=== PATIENT | female | born 1955 | race Caucasian/White ===

== ENCOUNTER 2017-07-09 14:45 | Inpatient (IN) | payer OTHER ==
[~2017-07-09] VITALS: Ht 167.6 cm; Wt 66.2 kg
[2017-07-09 14:53] VITALS: BP 165/110
--- NOTE | 2017-07-09 14:54 | NUR ---
PT AMBULATED TO BED 11
--- NOTE | 2017-07-09 15:00 | NUR ---
PATIENT PRESENTS TO ED WITH COMPLAINTS OF HIGH BLOOD PRESSURE. PT STATES BLOOD PRESSURE HAS BEEN HIGH FOR A FEW DAYS AND SHE NO LONGER HAS ANY XANAX TO HELP WITH HER ANXIETY. PATIENT DENIES ANY WEAKNESS, PUPILS PERRL, STRENGTH SYMMETRY IN BILATERAL HANDS. DENIES N/V/D; SKIN IS PINK/WARM/DRY; AAOX4 WITH EVEN AND STEADY GAIT; LUNGS CLEAR BL; HR EVEN AND REGULAR; PT DENIES ANY FEVER, CP, SOB, OR COUGH AT THIS TIME; PATIENT STATES PAIN OF 7/10 GENERALIZED WITH SLIGHT HEADACHE AT THIS TIME; VSS; PATIENT POSITIONED FOR COMFORT; HOB ELEVATED; BEDRAILS UP X1; BED DOWN. ER MD MADE AWARE OF PT STATUS.
[2017-07-09 15:29] LABS: BASOPHILS # (AUTO) 0.1 K/uL (0.00-0.22); BASOPHILS % (AUTO) 0.9 % (0.0-2.0); EOSINOPHILS # (AUTO) 0.1 K/uL (0-0.4); EOSINOPHILS % (AUTO) 1.7 % (0.0-4.0); HEMATOCRIT 37.5 % (36-48); HEMOGLOBIN 12.3 g/dL (12.0-16.0); LYMPHOCYTES # (AUTO) 2.5 K/uL (2.5-16.5); LYMPHOCYTES % (AUTO) 34.3 % (20.5-51.1); MEAN CORPUSCULAR HEMOGLOBIN 29 pg (27-31); MEAN CORPUSCULAR HGB CONC 33 g/dL (33-37); MEAN CORPUSCULAR VOLUME 88.9 fL (80-94); MONOCYTES # (AUTO) 0.5 K/uL (0.8-1.0); MONOCYTES % (AUTO) 6.9 % (1.7-9.3); NEUTROPHILS # (AUTO) 4.1 K/uL (1.8-7.7); NEUTROPHILS % (AUTO) 56.2 % (42.2-75.2); PLATELET COUNT (AUTO) 309 K/uL (140-450); RED BLOOD CELL COUNT(AUTO) 4.21 MIL/uL (4.20-5.40); RED CELL DISTRIBUTION WIDTH 13.9 % (11.6-13.7); WHITE BLOOD COUNT (AUTO) 7.2 K/uL (4.8-10.8)
[2017-07-09 15:43] LABS: PROTHROMBIN TIME 10.9 secs (10.8-13.4)
[2017-07-09 15:45] LABS: ALBUMIN 3.5 g/dL (3.4-5.0); ANION GAP 14.5 (8-16); CARBON DIOXIDE 25.8 mmol/L (21-32); CREATININE 0.8 mg/dL (0.6-1.3); POTASSIUM 3.3 mmol/L (3.5-5.1); TOTAL BILIRUBIN 0.6 mg/dL (0.0-1.0)
[2017-07-09] MEDS ORDERED: LORazepam 1 MG TAB PO ONE ×2 (16:25→17:00)
[2017-07-09 16:40] LABS: APPEARANCE,URINE CLEAR (CLEAR); BILIRUBIN,URINE NEGATIVE (NEGATIVE); BLOOD, URINE TRACE-L (NEGATIVE); LEUKOCYTE ESTERASE ,URINE NEGATIVE (NEGATIVE); NITRITE, URINE NEGATIVE (NEGATIVE); UGLUCOSE NEGATIVE (NEGATIVE)
[2017-07-09 16:43] LABS: COLOR,URINE STRAW (YELLOW)
[2017-07-09 16:55] LABS: RBC,URINE 0-5 (RARE) /HPF (0-5); WBC,URINE NONE SEEN /HPF (0-5)
[2017-07-09] MEDS ORDERED: POTASSIUM CHLORIDE 10 MEQ TABER PO ONE (17:05)
[2017-07-09] MEDS ORDERED: hydrALAZINE 20 MG/ML VIAL IVP ONE (17:15)
[2017-07-09] MEDS ORDERED: diphenhydrAMINE 50 MG/ML VIAL IVP ONE (18:00)
--- NOTE | 2017-07-09 19:09 | NUR ---
REPORT GIVEN TO HENNESSY (CATHERINE)
--- NOTE | 2017-07-09 19:10 | NUR ---
RECEIVED REPORT FROM KALYAN PARK. PT RESTING WITH FAMILY AT BEDSIDE. PT AOX3 PERSON PLACE AND EVENT. NO SOB, NO DISTRESS NOTED. WILL CONTINUE TO MONITOR.
[2017-07-09] MEDS ORDERED: ONDANSETRON 4 MG/2 ML VIAL IM/IVP PRN (19:40)
[2017-07-09] MEDS ORDERED: ACETAMINOPHEN 325 MG TAB PO PRN (19:40)
[2017-07-09] MEDS ORDERED: DOCUSATE SODIUM 100 MG GELCAP PO PRN (19:40)
--- NOTE | 2017-07-09 19:48 | NUR ---
CALLED TELE CHARGE-SHE WILL CALLBACK WITH A ROOM #
--- NOTE | 2017-07-09 20:00 | NUR ---
Patient will be admitted to care of DR BYRD . Admited to TELE. Will go to room 119B. Belongings list completed. Report to MARYSOL PARK .
--- NOTE | 2017-07-09 20:09 | NUR ---
MACARIO ZUÑIGA STS "I WILL DO THE MED RECONCILE " VIVIAN HENNESSY NOTIFTED.
[2017-07-09] MEDS ORDERED: FAMO-90 PO (20:10)
[2017-07-09] MEDS ORDERED: PAX20 PO (20:10)
[2017-07-09] MEDS ORDERED: GABA300C PO (20:10)
[2017-07-09] MEDS ORDERED: ENALAPRIL 10 MG TAB PO ONE (20:10)
[2017-07-09] MEDS ORDERED: ALPR2TAB1 PO (20:10)
[2017-07-09] MEDS ORDERED: METH750T5 PO (20:10)
[2017-07-09] MEDS ORDERED: ENAL20TA6 PO (20:10)
[2017-07-09] MEDS ORDERED: TRAZ-286 PO (20:10)
[2017-07-09] MEDS ORDERED: LEVO0.0211 PO (20:10)
[2017-07-09] MEDS ORDERED: ATOR20TA40 PO (20:10)
[2017-07-09] MEDS ORDERED: ATEN50TA8 PO (20:10)
[2017-07-09] MEDS ORDERED: ATENOLOL 50 MG TAB PO ONE (20:10)
[2017-07-09 20:20] VITALS: BP 214/92
--- NOTE | 2017-07-09 20:20 | NUR ---
RECEIVED PT FROM ER NURSE-DAVE RN VIA BERTA. PT AMBULATORY WITH ASSISTANCE, HAS WALKER. AOX3-CONFUSED, ON ROOM AIR WITH IV LEFT WRIST #22G. BOYFRIEND AT BEDSIDE. ALLERGIC TO PENICILLINS. ORIENTED PT TO ROOM. DISCUSSED PLAN OF CARE. PT CONFUSED, UNABLE TO VERBALIZE UNDERSTANDING. WHITE BOARD UPDATED. BED IN LOWEST POSITION, BED BREAKS ON AND BED ALARM ON. BED SIDE TABLE AND CALL LIGHT WITHIN REACH. WILL CONTINUE TO MONITOR.
[2017-07-09 20:22] LABS: BARBITURATE, URINE NEG. ng/ml (NEG <=200); BENZODIAZEPINE, URINE POS. ng/mL (NEG <=200); CANNABINOID, URINE NEG. ng/mL (NEG <=50); COCAINE, URINE NEG. ng/mL (NEG <=300); OPIATE, URINE POS. ng/mL (NEG <=2000); PHENCYCLIDINE SCREEN,URINE NEG. ng/mL (NEG <=25)
[2017-07-09 20:29] LABS: CHOL/HDL RATIO 3.7 (1-4.5); FREE T4 (FREE THYROXINE) 0.88 ng/dL (0.76-1.46); MAGNESIUM 1.5 mg/dL (1.8-2.4); PHOSPHORUS 3.7 mg/dL (2.5-4.9)
[2017-07-09] MEDS ORDERED: MAG SULF 2000 MG/WATER PREMIX 50 ML IV ONE ×2 (20:55→22:21)
[2017-07-09] MEDS: NACL 0.9% 1,000 ML IV SCH (22:26)
[2017-07-09] MEDS: GABAPENTIN 300 MG CAP PO SCH (22:27)
[2017-07-09] MEDS: ATORVASTATIN 20 MG TAB PO SCH (22:27)
[2017-07-09] MEDS: traZODone 50 MG TAB PO SCH (22:27)
[2017-07-09] MEDS ORDERED: ENALAPRIL 10 MG TAB ONE (22:40)
[2017-07-09] MEDS ORDERED: ATENOLOL 25 MG TAB ONE (22:41)
--- NOTE | 2017-07-09 23:00 | NUR ---
SCHEDULED MEDICATION GIVEN. PT ALSO REQUESTED A SANDWICH AND SNACKS. WILL CONTINUE TO MONITOR.
[2017-07-09] MEDS: ALPRAZolam 0.5 MG TAB PO SCH (23:12)
[2017-07-10] VITALS: BP 167/81
--- NOTE | 2017-07-10 | NUR ---
VITAL SIGNS SHOW BLOOD PRESSURE IS DECREASING. NO S/S OF RESPIRATORY DISTRESS OR DISCOMFORT NOTED AT THIS TIME. PT WANTING TO SLEEP. WILL CONTINUE TO MONITOR.
--- NOTE | 2017-07-10 02:00 | NUR ---
PT CONTINUES TO SLEEP. NO S/S OF RESPIRATORY DISTRESS OR DISCOMFORT NOTED AT THIS TIME. WILL CONTINUE TO MONITOR.
[2017-07-10 04:00] VITALS: BP 128/65
--- NOTE | 2017-07-10 04:00 | NUR ---
VITAL SIGNS TAKEN AND TOLERATED WELL. BLOOD PRESSURE 128/65. NO S/S OF RESPIRATORY DISTRESS OR DISCOMFORT NOTED AT THIS TIME. WILL CONTINUE TO MONITOR.
--- NOTE | 2017-07-10 06:00 | NUR ---
PT SLEEPING IN BED. NO S/S OF RESPIRATORY DISTRESS OR DISCOMFORT AT THIS TIME. WILL CONTINUE TO MONITOR.
--- NOTE | 2017-07-10 07:15 | NUR ---
ENDORSED PT CARE TO DAY SHIFT NURSE KRISTEL FOR CONTINUITY OF CARE. PT IN STABLE CONDITION AT THIS TIME.
--- NOTE | 2017-07-10 07:20 | NUR ---
RECEIVED REPORT FROM FIELD RING ASSEMBLER NURSE MARYSOL, PT IS AWAKE AND LYING ON THE BED, WITH PADDED SIDE RAILS AND AN IV LINE AT LEFT WRIST G.22, AND AN IV PIGGYBACK OF MAGNESIUM INFUSING AT 25ML/HR. NO SIGN OF DISTRESS NOTED. CALL LIGHT WITHIN REACH, SIDE RAILS UP AND BED ALARM IN PLACED. WILL CONTINUE TO MONITOR.
[2017-07-10 07:28] LABS: BASOPHILS # (AUTO) 0.1 K/uL (0.00-0.22); BASOPHILS % (AUTO) 0.7 % (0.0-2.0); EOSINOPHILS # (AUTO) 0.1 K/uL (0-0.4); EOSINOPHILS % (AUTO) 1.9 % (0.0-4.0); HEMATOCRIT 34.6 % (36-48); HEMOGLOBIN 11.4 g/dL (12.0-16.0); LYMPHOCYTES # (AUTO) 3.2 K/uL (2.5-16.5); LYMPHOCYTES % (AUTO) 41.6 % (20.5-51.1); MEAN CORPUSCULAR HEMOGLOBIN 29 pg (27-31); MEAN CORPUSCULAR HGB CONC 33 g/dL (33-37); MEAN CORPUSCULAR VOLUME 88.4 fL (80-94); MONOCYTES # (AUTO) 0.6 K/uL (0.8-1.0); MONOCYTES % (AUTO) 7.5 % (1.7-9.3); NEUTROPHILS # (AUTO) 3.7 K/uL (1.8-7.7); NEUTROPHILS % (AUTO) 48.3 % (42.2-75.2); PLATELET COUNT (AUTO) 301 K/uL (140-450); RED BLOOD CELL COUNT(AUTO) 3.91 MIL/uL (4.20-5.40); WHITE BLOOD COUNT (AUTO) 7.6 K/uL (4.8-10.8)
--- NOTE | 2017-07-10 07:50 | NUR ---
PT IS AWAKE AND SEATED ON THE BED, EATING HER BREAKFAST. CALL LIGHT WITHIN REACH. NO SIGN OF DISTRESS NOTED. WILL MONITOR.
[2017-07-10 07:54] LABS: ANION GAP 13.1 (8-16); CARBON DIOXIDE 26.9 mmol/L (21-32); CREATININE 0.8 mg/dL (0.6-1.3)
[2017-07-10 08:00] VITALS: BP 154/58
--- NOTE | 2017-07-10 08:15 | NUR ---
PT IS AWAKE AND SEATED ON THE BED EATING HER BREAKFAST, NO SIGN OF DISTRESS NOTED, CALL LIGHT WITHIN REACH. WILL CONTINUE TO MONITOR.
--- NOTE | 2017-07-10 08:30 | NUR ---
PT IS AWAKE AND VITAL SIGNS TAKEN, BP RESULT IS 178/71. NO OTHER SIGN OF DISTRESS NOTED. CALL LIGHT WITHIN REACH AND WILL CONTINUE TO MONITOR.
--- NOTE | 2017-07-10 08:30 | NUR ---
PATIENT HAS BEEN SCREENED AND CATEGORIZED MODERATE RISK. PATIENT WILL BE SEEN WITHIN 3-5 DAYS OF ADMISSION. 07/12/17 TO 07/14/[address], [facility]
[2017-07-10] MEDS: METHOCARBAMOL 500 MG TAB PO SCH (08:47)
[2017-07-10] MEDS: ENALAPRIL 10 MG TAB PO SCH (08:47)
[2017-07-10] MEDS: GABAPENTIN 300 MG CAP PO SCH ×2 (08:48→21:59)
[2017-07-10] MEDS: PARoxetine 20 MG TAB PO SCH (08:48)
[2017-07-10] MEDS: LEVOTHYROXINE 0.025 MG TAB PO SCH (08:49)
[2017-07-10] MEDS: FAMOTIDINE 20 MG TAB PO SCH (08:49)
[2017-07-10] MEDS ORDERED: ENALAPRIL 10 MG TAB PO SCH (09:00)
[2017-07-10] MEDS ORDERED: ATENOLOL 50 MG TAB PO SCH ×2 (09:00)
[2017-07-10] MEDS: ALPRAZolam 0.5 MG TAB PO SCH (10:36)
--- NOTE | 2017-07-10 10:42 | NUR ---
ASSISTED PT TO THE BATHROOM AND BACK TO BED AND NO SIGN OF DISTRESS NOTED. WILL MONITOR.
--- NOTE | 2017-07-10 10:43 | NUR ---
PT VERBALIZED THAT SHE IS FEELING ANXIOUS AND ASKED FOR A MEDICATION TO CALM HER DOWN. MEDICATION GIVEN AND PT TOLERATED IT. PT IS ON THE BED, WATCHING TV. CALL LIGHT WITHIN REACH. WILL CONTINUE TO MONITOR.
--- NOTE | 2017-07-10 11:49 | NUR ---
PT'S SISTER JOIE CALLED AND ASKED ABOUT HOW THE PT IS DOING. INFORMED THE SISTER OF THE PT'S BP AND THAT PT IS STABLE AT THIS TIME. PT IS SEEN SLEEPING ON THE BED. NO SIGN OF DISTRESS NOTED. CALL LIGHT WITHIN REACH. WILL CONTINUE TO MONITOR.
[2017-07-10 12:00] VITALS: BP 142/73
--- NOTE | 2017-07-10 12:45 | NUR ---
PT IS SLEEPING LYING ON THE BED, NS STILL INFUSING. SIDE RAILS ARE UP AND PADDED, CALL LIGHT WITHIN REACH. NO SIGN OF DISTRESS NOTED. WILL CONTINUE TO MONITOR.
--- NOTE | 2017-07-10 13:01 | NUR ---
PT IS ASLEEP AND LYING ON THE BED, PT WAS AWAKEN WHEN HER BOYFRIEND CAME AND BROUGHT BRODY FOR HER. NO SIGN OF DISCOMFORT NOTED ON THE PT. CALL LIGHT WITHIN REACH AND SIDE RAILS ARE UP AND PADDED. PT WAS LEFT WITH THE BOYFRIEND ON THE BEDSIDE.
[2017-07-10] MEDS: HYDROcodone/APAP 7.5/325 MG 1 TAB PO PRN ×2 (13:41→22:00)
--- NOTE | 2017-07-10 13:45 | NUR ---
ASSISTED PT TO THE BATHROOM AND BACK TO THE BED, BOYFRIEND AT THE BEDSIDE. PT VERBALIZED A PAIN ON THE HEAD AND RATED PAIN 6. PT ASKED FOR A PAIN MEDICATION AND NORCO WAS GIVEN.. PT TOLERATED IT AND NO SIGN OF DISTRESS NOTED. CALL LIGHT WITHIN REACH AND WILL CONTINUE TO MONITOR.
[2017-07-10] MEDS ORDERED: ALBUTEROL SULFATE/IPRATROPIU 3 ML SOL IH PRN (14:05)
[2017-07-10] MEDS: NACL 0.9% 1,000 ML IV SCH (14:07)
--- NOTE | 2017-07-10 14:15 | NUR ---
PT IS ASLEEP ON THE BED, STARTED ON POTASSIUM AT 20MEQ, IV PIGGYBACK AT A RATE OF 50ML/HR. PT TOLERATED IT AND NO SIGN OF DISTRESS NOTED. CALL LIGHT WITHIN REACH AND SIDE RAILS ARE UP AND PADDED. WILL CONTINUE TO MONITOR.
[2017-07-10] MEDS: KCL 20 MEQ/WATER INJ PREMIX 100 ML IV SCH ×2 (14:27→19:14)
--- NOTE | 2017-07-10 15:31 | NUR ---
INFORMED DR. OBANDO THAT THE PT IS FEELING A BURNING SENSATION ON HER IV SITE, WITH THE POTASSIUM OF 20MEQ RUNNING AT 50ML/HR. DR OBANDO ADVISED TO LOWER THE RATE AT 25ML/HR. ORDER ACKNOWLEDGED.
[2017-07-10 16:00] VITALS: BP 178/81
--- NOTE | 2017-07-10 18:55 | NUR ---
PT IS AWAKE AND WAS ASSISTED TO THE BATHROOM, KCL WAS STARTED AT A RATE OF 20ML/HR, PT TOLERATED IT. NO OTHER SIGN OF DISCOMFORT NOTED.
--- NOTE | 2017-07-10 19:25 | NUR ---
ENDORSED PT TO WIRE FRAME LAMPSHADE MAKER NURSE MARYSOL, FOR CONTINUITY OF CARE. PT IS STABLE WITH BOYFRIEND ON THE BEDSIDE.
--- NOTE | 2017-07-10 19:26 | NUR ---
RECEIVED REPORT FROM DAY SHIFT NURSE-ANGELICA PARK. PT IS AWAKE AND LYING ON THE BED, WITH PADDED SIDE RAILS. AOX3, ON ROOM AIR WITH IV LINE AT LEFT WRIST G.22. BOYFRIEND STELLA AT BEDSIDE. DISCUSSED PLAN OF CARE AND PT VERBALIZED UNDERSTANDING. UPDATED WHITE BOARD. BED IN LOWEST POSITION, BED BREAKS ON, BED ALARM ON. BED SIDE TABLE AND CALL LIGHT WITHIN REACH. NO S/S OF RESPIRATORY DISTRESS OR DISCOMFORT NOTED AT THIS TIME. WILL CONTINUE TO MONITOR.
[2017-07-10 20:00] VITALS: BP 176/70
--- NOTE | 2017-07-10 20:40 | NUR ---
SPOKE WITH DR. CARVALHO ABOUT BLOOD PRESSURE 176/70. WILL ORDER ONE TIME DOSE TO LOWER BP AND THEN REASSESS 2 HOURS LATER.
[2017-07-10] MEDS: ATORVASTATIN 20 MG TAB PO SCH (21:59)
[2017-07-10] MEDS: traZODone 50 MG TAB PO SCH (22:00)
[2017-07-10] MEDS: ATENOLOL 50 MG TAB PO SCH (22:00)
--- NOTE | 2017-07-10 22:00 | NUR ---
BP 182/70, HR 84 BEFORE BLOOD PRESSURE MEDICATION WAS GIVEN. WILL CONTINUE TO MONITOR.
[2017-07-10] MEDS: ALPRAZolam 0.5 MG TAB PO PRN (23:07)
--- NOTE | 2017-07-10 23:13 | NUR ---
BP 175/74, HR 83 AFTER BLOOD PRESSURE MEDICATION WAS GIVEN AN HOUR AGO. SPOKE WITH DR. CARVALHO AND HE TOLD ME TO RE-TAKE BP IN AN HOUR. WILL TAKE VITAL SIGNS AT MIDNIGHT AND CONTINUE TO MONITOR.
[2017-07-11] VITALS: BP 142/65
--- NOTE | 2017-07-11 | NUR ---
VITAL SIGNS TAKEN. BP HAS DECREASED TO 142/65, HR 80. NO S/S OF RESPIRATORY DISTRESS OR DISCOMFORT NOTED AT THIS TIME. WILL CONTINUE TO MONITOR.
--- NOTE | 2017-07-11 02:00 | NUR ---
PT CONTINUES TO SLEEP. NO S/S OF RESPIRATORY DISTRESS OR DISCOMFORT AT THIS TIME. WILL CONTINUE TO MONITOR.
[2017-07-11 04:00] VITALS: BP 133/57
--- NOTE | 2017-07-11 04:00 | NUR ---
VITAL SIGNS TAKEN AND TOLERATED WELL. BP 133/57, HR 69. PT CONTINUES TO SLEEP. NO S/S OF RESPIRATORY DISTRESS OR DISCOMFORT AT THIS TIME. WILL CONTINUE TO MONITOR.
--- NOTE | 2017-07-11 05:59 | NUR ---
FAX SENT TO [facility] TO REQUEST RECORDS. THIS IS THE SECOND ATTEMPT.
[2017-07-11 06:22] LABS: BASOPHILS % (AUTO) 0.6 % (0.0-2.0); EOSINOPHILS # (AUTO) 0.2 K/uL (0-0.4); EOSINOPHILS % (AUTO) 2.5 % (0.0-4.0); HEMATOCRIT 32.1 % (36-48); HEMOGLOBIN 10.6 g/dL (12.0-16.0); LYMPHOCYTES # (AUTO) 3.7 K/uL (2.5-16.5); LYMPHOCYTES % (AUTO) 55.4 % (20.5-51.1); MEAN CORPUSCULAR HEMOGLOBIN 30 pg (27-31); MEAN CORPUSCULAR HGB CONC 33 g/dL (33-37); MEAN CORPUSCULAR VOLUME 89.9 fL (80-94); MONOCYTES # (AUTO) 0.5 K/uL (0.8-1.0); NEUTROPHILS # (AUTO) 2.3 K/uL (1.8-7.7); NEUTROPHILS % (AUTO) 34.5 % (42.2-75.2); PLATELET COUNT (AUTO) 256 K/uL (140-450); RED BLOOD CELL COUNT(AUTO) 3.57 MIL/uL (4.20-5.40); RED CELL DISTRIBUTION WIDTH 14.1 % (11.6-13.7); WHITE BLOOD COUNT (AUTO) 6.7 K/uL (4.8-10.8)
[2017-07-11 06:42] LABS: ANION GAP 11.1 (8-16); CARBON DIOXIDE 28.7 mmol/L (21-32); CREATININE 0.9 mg/dL (0.6-1.3); POTASSIUM 3.8 mmol/L (3.5-5.1)
[2017-07-11 06:45] LABS: MAGNESIUM 1.8 mg/dL (1.8-2.4); PHOSPHORUS 3.5 mg/dL (2.5-4.9)
--- NOTE | 2017-07-11 07:10 | NUR ---
ENDORSED PT CARE TO DAY SHIFT NURSE ZBIGNIEW FOR CONTINUITY OF CARE. PT STABLE AND RESTING AT THIS TIME.
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
[2017-07-11 08:00] VITALS: BP 168/74
[2017-07-11] MEDS: ATENOLOL 50 MG TAB PO SCH ×2 (08:54→20:31)
[2017-07-11] MEDS: FAMOTIDINE 20 MG TAB PO SCH (08:55)
[2017-07-11] MEDS: ENALAPRIL 10 MG TAB PO SCH (08:55)
[2017-07-11] MEDS: METHOCARBAMOL 500 MG TAB PO SCH (08:55)
[2017-07-11] MEDS: GABAPENTIN 300 MG CAP PO SCH ×2 (08:55→20:30)
[2017-07-11] MEDS: LEVOTHYROXINE 0.025 MG TAB PO SCH (08:56)
[2017-07-11] MEDS: PARoxetine 20 MG TAB PO SCH (08:56)
[2017-07-11] MEDS: HYDROcodone/APAP 7.5/325 MG 1 TAB PO PRN ×3 (09:02→19:45)
--- NOTE | 2017-07-11 09:02 | NUR ---
PT WAS COMPLAINING OF BACK PAIN 08/07. ADMINISTERED NORCO PO FOR PAIN. PT TOLERATED WELL. PT GOT UP TO USE RESTROOM WITH WALKER. NO COMPLAINTS AT THIS TIME. WILL CONTINUE TO MONITOR.
[2017-07-11] MEDS: NACL 0.9% 1,000 ML IV SCH (09:12)
[2017-07-11] MEDS: ALPRAZolam 0.5 MG TAB PO PRN ×2 (11:01→22:30)
--- NOTE | 2017-07-11 11:01 | NUR ---
PT WAS COMPLAINING OF FEELING ANXIOUS AND ASKED FOR XANAX. ADMINISTERED XANAX PO. PT TOLERATED WELL. SPEAKING NOW WITH SPRAY OPERATOR. NO SIGNS OF DISTRESS. WILL CONTINUE TO MONITOR.
[2017-07-11 12:00] VITALS: BP 127/66
[2017-07-11 16:00] VITALS: BP 150/54
--- NOTE | 2017-07-11 16:00 | NUR ---
PT CALLED AND ASKED TO BE DISCONNECT FROM IV. SL IV TO L FA22G. PT GOT UP TO USE RESTROOM AND VOIDED. ASSISTED BACK TO BED. CONNECTED BACK TO IVF. PT LYING IN BED. NO SIGNS OF DISTRESS. WILL CONTINUE TO MONITOR.
[2017-07-11] MEDS ORDERED: amLODIPine 5 MG TAB PO SCH (17:00)
--- NOTE | 2017-07-11 19:15 | NUR ---
ENDORSED PT TO FLEET MANAGER/DISPATCH NURSE TORITO AT BEDSIDE FOR CONTINUITY OF CARE. PT IN STABLE CONDITION.
--- NOTE | 2017-07-11 19:20 | NUR ---
RECEIVED FROM AM RN IN BED SITTING UP WITH FAMILY MEMBER AT BEDSIDE. ABLE TO VERBALIZE NEEDS WELL. NO SOB. DENIES PAIN AT THIS TIME. CALL LIGHT WITH IN REACH. CARE PLANS FOR THE NIGHT DISCUSSED WITH THEM. PT. ABLE TO VERBALIZE IN [place] WELL WHATEVER SHE WANTS. AFEBRILE. DX. OF HYPERTENSIVE URGENCY.
[2017-07-11 19:37] VITALS: BP 163/66
[2017-07-11] MEDS: traZODone 50 MG TAB PO SCH ×2 (20:31→20:36)
[2017-07-11] MEDS: ATORVASTATIN 20 MG TAB PO SCH (20:32)
--- NOTE | 2017-07-11 22:30 | NUR ---
PT. REQUESTED FOR XANAX P.O. RT STATED THAT SHE FEELS SHE HAS ANXIETY. MEDICATED REQUESTED.
[2017-07-11] MEDS ORDERED: ALPRAZolam 0.5 MG TAB PO PRN (23:00)
[2017-07-12 00:11] VITALS: BP 95/57
--- NOTE | 2017-07-12 00:13 | NUR ---
PT. AWAKE AT THIS TIME. ASSISTED TO GO RESTROOM. NO PAIN COMPLAINTS DONE. A/O X 4. ROM X 4. USED FRONT WHEEL TO WALK.
--- NOTE | 2017-07-12 02:00 | NUR ---
SLEEPING. NO RESTLESSNESS NOTED.
--- NOTE | 2017-07-12 04:33 | NUR ---
SLEPT WELL. WOKE UP WHEN CALLED BY NAME TO GET VITAL SIGNS. NO COMPLAINTS DONE AT THIS TIME. CALL LIGHT WITH IN REACH AT BEDSIDE. TELEMETRY MONITORING. AFEBRILE. TEOLEMETRY MONITORING.
[2017-07-12 05:03] VITALS: BP 133/53
[2017-07-12] MEDS: HYDROcodone/APAP 7.5/325 MG 1 TAB PO PRN (05:20)
[2017-07-12] MEDS: NACL 0.9% 1,000 ML IV SCH (05:25)
[2017-07-12 06:03] LABS: BASOPHILS % (AUTO) 0.7 % (0.0-2.0); EOSINOPHILS # (AUTO) 0.2 K/uL (0-0.4); EOSINOPHILS % (AUTO) 3.8 % (0.0-4.0); HEMATOCRIT 31.9 % (36-48); HEMOGLOBIN 10.4 g/dL (12.0-16.0); LYMPHOCYTES # (AUTO) 3.3 K/uL (2.5-16.5); MEAN CORPUSCULAR HEMOGLOBIN 30 pg (27-31); MEAN CORPUSCULAR HGB CONC 33 g/dL (33-37); MEAN CORPUSCULAR VOLUME 90.6 fL (80-94); MONOCYTES # (AUTO) 0.4 K/uL (0.8-1.0); MONOCYTES % (AUTO) 6.9 % (1.7-9.3); NEUTROPHILS # (AUTO) 2.1 K/uL (1.8-7.7); NEUTROPHILS % (AUTO) 34.6 % (42.2-75.2); PLATELET COUNT (AUTO) 258 K/uL (140-450); RED BLOOD CELL COUNT(AUTO) 3.52 MIL/uL (4.20-5.40); RED CELL DISTRIBUTION WIDTH 14.2 % (11.6-13.7)
[2017-07-12 06:20] LABS: T4 (THYROXINE) 6.7 ug/dL (4.5-12.0)
[2017-07-12 06:54] LABS: ANION GAP 10.4 (8-16); CARBON DIOXIDE 28.4 mmol/L (21-32); CREATININE 0.8 mg/dL (0.6-1.3); POTASSIUM 3.8 mmol/L (3.5-5.1)
[2017-07-12 07:06] LABS: MAGNESIUM 1.7 mg/dL (1.8-2.4)
--- NOTE | 2017-07-12 07:15 | NUR ---
RECEIVED PATIENT REPORT AT BEDSIDE. PATIENT AWAKE, ALERT AND ORIENTED. PATIENT ON ROOM AIR. NO SOB. BREATHING EVEN AND UNLABORED. NO S/S OF DISTRESS. NO C/O PAIN AT THIS TIME. PATIENT ON TELE MONITORING. BED LOWERED WITH CALL LIGHT WITHIN REACH. WILL CONTINUE TO MONITOR
[2017-07-12 07:42] VITALS: BP 169/71
[2017-07-12] MEDS: GABAPENTIN 300 MG CAP PO SCH (08:06)
[2017-07-12] MEDS: FAMOTIDINE 20 MG TAB PO SCH (08:07)
[2017-07-12] MEDS: METHOCARBAMOL 500 MG TAB PO SCH (08:07)
[2017-07-12] MEDS: ENALAPRIL 10 MG TAB PO SCH (08:07)
[2017-07-12] MEDS: ATENOLOL 50 MG TAB PO SCH (08:07)
[2017-07-12] MEDS: ALPRAZolam 0.5 MG TAB PO PRN (08:08)
[2017-07-12] MEDS: PARoxetine 20 MG TAB PO SCH (08:08)
[2017-07-12] MEDS: LEVOTHYROXINE 0.025 MG TAB PO SCH (08:08)
[2017-07-12] MEDS ORDERED: amLODIPine 5 MG TAB PO SCH (09:00)
--- NOTE | 2017-07-12 09:24 | NUR ---
PATIENT ASLEEP IN BED. NO S/S OF DISTRESS NOTED
[2017-07-12 12:00] VITALS: BP 127/82
[2017-07-12] MEDS ORDERED: ALBU0.0912 IH (14:03)
[2017-07-12] MEDS ORDERED: FLUT1DSK2 IH (14:03)
[2017-07-12] MEDS ORDERED: ALPR2TAB1 PO (14:05)
--- NOTE | 2017-07-12 15:45 | NUR ---
WELL TESTING OPERATOR LOUIS SPOKE WITH THE PATIENT REGARDING HOME HEALTH SERVICES. PATIENT AGREED AND VERBALIZED UNDERSTANDING
--- NOTE | 2017-07-12 15:45 | NUR ---
PATIENT DISCHARGED TO HOME. DISCHARGE INSTRUCTIONS AND DISCHARGE PRESCRIPTIONS GIVEN. PATIENT VERBALIZED UNDERSTANDING. IV LINE DISCONTINUED. TELE MONITOR TAKEN OFF. PATIENT LEFT WITH ALL HER BELONGINGS AND DISCHARGE PAPERS. PATIENT LEFT IN STABLE CONDITION
--- NOTE | 2017-07-12 16:33 | NUR ---
I met with patient to verify address listed on face sheet, she is in agreement with home health services and does not have home health preference. I faxed inquiry to [facility] *Per Camilla from [facility] [phone] They will send an RN female (Patient's request) to patient's home tomorrow. Addendum: 07/12/17 at 1638 by Kala Allen CM laundromat manager [facility] was arranged
== END 2017-07-12 15:45 | disposition home health service (06) | DRG 304 ==
LOC: MED 14:45 → MTU 19:40
PROVIDERS: ADMIT Family Medicine Sports Medicine; ATTEND Family Medicine Sports Medicine
DX: I16.0 Hypertensive urgency (principal); G92 Toxic encephalopathy; E83.42 Hypomagnesemia; E03.9 Hypothyroidism, unspecified; F32.9 Major depressive disorder, single episode, unspecified; F41.9 Anxiety disorder, unspecified; E87.6 Hypokalemia; F17.200 Nicotine dependence, unspecified, uncomplicated; Z88.0 Allergy status to penicillin; I10 Essential (primary) hypertension; I34.1 Nonrheumatic mitral (valve) prolapse; Z85.42 Personal history of malignant neoplasm of other parts of uterus; E11.9 Type 2 diabetes mellitus without complications; J44.9 Chronic obstructive pulmonary disease, unspecified
CPT/HCPCS: 36415; 70450; 71045; 80048; 80053; 80305; 81001; 82150; 82948; 83036; 83605; 83690; 83735; 83880; 84100; 84436; 84439; 84443; 84479; 84484; 85025; 85610; 85730; 87040; 87081; 93005; J0360; J1200; J3475; J3480; J7030; Q0092

== ENCOUNTER 2019-04-23 20:55 | Emergency (ER) | payer OTHER ==
[~2019-04-23] VITALS: Ht 172.7 cm; Wt 66.7 kg
[~2019-04-23 20:55] MED LIST: ALBU0.0912 IH; ALPR2TAB1 PO; ATOR20TA40 PO; FAMO-90 PO; FLUT1DSK2 IH; GABA300C PO; LEVO0.0211 PO; METH750T5 PO; PAX20 PO; TRAZ-343 PO
[2019-04-23 21:06] VITALS: BP 116/65
--- NOTE | 2019-04-23 21:06 | NUR ---
TO LOBBY A/W BED AMBULATORY
--- NOTE | 2019-04-23 21:27 | NUR ---
PT AMBULATED TO BED 08
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
[2019-04-23] MEDS ORDERED: MORPHINE SULFATE 4 MG/ML SYR IVP ONE (22:00)
[2019-04-23] MEDS ORDERED: ONDANSETRON 4 MG/2 ML VIAL IVP ONE (22:00)
--- NOTE | 2019-04-23 22:20 | NUR ---
PHLEB IN ROOM WITH PT.
--- NOTE | 2019-04-23 22:26 | NUR ---
TRIED PLACING IV X2 UNSUCCESSFUL. PT NOW TRYING TO USE BATHROOM TO PROVIDE URINE SAMPLE. PT STATES SHE IS "ALLERGIC" TO CONTRAST FOR THE CT; WITH THE REACTION BEING INTENSE BURNING THROUGHOUT THE BODY. PT DECLINES TO RECEIVE IV CONTRAST; PT CONSENTS TO CT W/O CONTRAST.
[2019-04-23 22:30] LABS: BASOPHILS # (AUTO) 0.1 K/uL (0.00-0.22); BASOPHILS % (AUTO) 0.9 % (0.0-2.0); EOSINOPHILS # (AUTO) 0.1 K/uL (0-0.4); EOSINOPHILS % (AUTO) 1.8 % (0.0-4.0); HEMATOCRIT 36.6 % (36-48); HEMOGLOBIN 11.6 g/dL (12.0-16.0); LYMPHOCYTES # (AUTO) 2.4 K/uL (2.5-16.5); LYMPHOCYTES % (AUTO) 31.1 % (20.5-51.1); MEAN CORPUSCULAR HEMOGLOBIN 28 pg (27-31); MEAN CORPUSCULAR HGB CONC 32 g/dL (33-37); MEAN CORPUSCULAR VOLUME 88.1 fL (80-94); MONOCYTES # (AUTO) 0.5 K/uL (0.8-1.0); NEUTROPHILS # (AUTO) 4.6 K/uL (1.8-7.7); NEUTROPHILS % (AUTO) 60.2 % (42.2-75.2); PLATELET COUNT (AUTO) 268 K/uL (140-450); RED BLOOD CELL COUNT(AUTO) 4.15 MIL/uL (4.20-5.40); RED CELL DISTRIBUTION WIDTH 14.5 % (11.6-13.7); WHITE BLOOD COUNT (AUTO) 7.7 K/uL (4.8-10.8)
--- NOTE | 2019-04-23 22:40 | NUR ---
22G R WRIST PLACED; ZOFRAN AND MORPHINE GIVEN. OBTAINED URINE SAMPLE; SENT TO LAB. WILL CONTINUE TO MONITOR.
[2019-04-23 22:45] LABS: ALBUMIN 3.2 g/dL (3.4-5.0); ANION GAP 11.2 (8-16); CARBON DIOXIDE 30.4 mmol/L (21-32); CREATININE 0.8 mg/dL (0.6-1.3); POTASSIUM 3.6 mmol/L (3.5-5.1); TOTAL BILIRUBIN 0.5 mg/dL (0.0-1.0)
[2019-04-23 23:48] LABS: APPEARANCE,URINE CLEAR (CLEAR); BLOOD, URINE TRACE (NEGATIVE); COLOR,URINE YELLOW (YELLOW); UGLUCOSE NEGATIVE (NEGATIVE)
[2019-04-23 23:49] LABS: BILIRUBIN,URINE NEGATIVE (NEGATIVE); LEUKOCYTE ESTERASE ,URINE NEGATIVE (NEGATIVE); NITRITE, URINE NEGATIVE (NEGATIVE); RBC,URINE 0-5 /HPF (0-5); WBC,URINE NONE SEEN /HPF (0-5)
[2019-04-24 00:42] VITALS: BP 110/72
[2019-04-24] MEDS ORDERED: MORPHINE SULFATE 4 MG/ML SYR IVP ONE (01:45)
--- NOTE | 2019-04-24 01:58 | NUR ---
PT C/O 09/06 ABDOMINAL PAIN WHICH PERSISTS AFTER LAST DOSE OF IV MORPHINE. DENIES NAUSEA. REQUESTED PAIN MEDS. GAVE 4MG IV MORPHINE. VSS. RESTING ON SIDE. NO SIGNS OF DISTRESS. WILL CONTINUE TO MONITOR.
--- NOTE | 2019-04-24 02:28 | NUR ---
Patient discharged with v/s stable. Written and verbal after care instructions given and explained. Patient alert, oriented and verbalized understanding of instructions. Ambulatory with steady gait. All questions addressed prior to discharge. ID band removed. Patient advised to follow up with PMD. Rx of MAHNAZ CANSECO, CIPROFLOXACIN HYDROCHLORIDE given. Patient educated on indication of medication including possible reaction and side effects. Opportunity to ask questions provided and answered. Addendum: 04/24/19 at 0235 by [email or web address] PT STABLE; DENIES DIZZINESS OR LIGHTHEADEDNESS. VSS. INSTRUCTED NOT TO DRIVE AFTER RECEIVING PAIN MEDICATION. DRIVING.
== END 2019-04-24 02:28 | disposition home or self-care (01) ==
LOC: MED 20:55
DX: K52.9 Noninfective gastroenteritis and colitis, unspecified (principal); I10 Essential (primary) hypertension; E07.9 Disorder of thyroid, unspecified; Z90.710 Acquired absence of both cervix and uterus; Z79.899 Other long term (current) drug therapy; Z88.0 Allergy status to penicillin
CPT/HCPCS: 36415; 74176; 80053; 81001; 83690; 84702; 84703; 85025; 96374; 96375; 96376; 99284; J2270; J2405